=== PATIENT | male | born 1975 | race Caucasian/White ===

== ENCOUNTER 2024-11-19 20:35 | Emergency (ER) | payer BC ==
[2024-11-19 20:45] VITALS: RESP 18
[2024-11-19 22:04] LABS: Appearance,Urine Clear (Clear); Bilirubin,Urine Negative (Negative); Blood,Urine Negative (Negative); Color,Urine Colorless; Glucose,Urine (UA) Negative (Negative); Ketones,Urine Negative (Negative); Leukocyte Esterase,Urine Negative (Negative); Nitrite,Urine Negative (Negative); PH, Urine 5.5 (5.0-8.0); Protein,Urine Negative (Negative); Specific Gravity,Urine 1.003 (1.001-1.035); Urobilinogen,Urine <2.0 mg/dL (<2.0)
--- NOTE | 2024-11-19 22:25 | ED ---
Abdominal Pain HPI <Deshaun Anglin - Last Filed: 11/20/24 19:48> - General Source: patient, RN notes reviewed Mode of arrival: ambulatory Limitations: no limitations - History of Present Illness MD Complaint: abdominal pain Onset/Timin -: days(s) Location: diffuse Migration to: periumbilical, suprapubic Severity scale (1-10): 10 Quality: cramping, stabbing Consistency: constant, intermittent Associated Symptoms: denies other symptoms <Gamaliel Kumar - Last Filed: 11/21/24 09:55> - General Chief Complaint: Abdominal Pain Stated Complaint: testicle pain, right side abdominal pain Time Seen by Provider: 11/19/24 20:53 - History of Present Illness Initial Comments: This is a 48-year-old male with history of CVA hypertension presenting for abdominal and scrotal pain x 7 days. Patient states pain started in his right teste describes pain as intermittent and sharp (10/10). States he went to his PCP where he was evaluated for possible inguinal hernia with no discovery made. States over the past several days he has been having migrating pain traveling to his lower and mid abdomen described as throbbing (7/10) that worsens when bendi ng forward. Endorses regular work with concrete. Endorses history of prostate issues with urination hesitancy. Denies fever, chills, chest pain, dyspnea, N/V/D, constipation, hematuria, other urinary symptoms. (Gamaliel Kumar) - Related Data Previous Rx's Medication Instructions Recorded Amoxic-Pot Clav 875-125Mg 1 tab PO Q12HR 7 Days #14 tab 11/20/24 [Augmentin 875-125] Allergies Allergy/AdvReac Type Severity Reaction Status Date / Time No Known Allergies Allergy Verified 11/19/24 20:45 Review of Systems ROS Other: All systems not noted in ROS Statement are negative. <Deshaun Anglin - Last Filed: 11/20/24 19:48> ROS Other: All systems not noted in ROS Statement are negative. <Gamaliel Kumar - Last Filed: 11/21/24 09:55> ROS Statement: Those systems with pertinent positive or pertinent negative responses have been documented in the HPI. Past Medical History Past Medical History: CVA/TIA, Hypertension History of Any Multi-Drug Resistant Organisms: None Reported Past Surgical History: No Surgical Hx Reported Past Psychological History: No Psychological Hx Reported Smoking Status: Current every day smoker Past Alcohol Use History: Daily Past Drug Use History: None Reported <Gamaliel Kumar - Last Filed: 11/21/24 09:55> General Exam Limitations: no limitations General appearance: alert, in no apparent distress Head exam: Present: atraumatic, normocephalic, normal inspection Eye exam: Present: normal appearance, PERRL, EOMI. Absent: scleral icterus, conjunctival injection, periorbital swelling ENT exam: Present: normal exam, mucous membranes moist Neck exam: Present: normal inspection. Absent: tenderness, meningismus, lymphadenopathy Respiratory exam: Present: normal lung sounds bilaterally. Absent: respiratory distress, wheezes, rales, rhonchi, stridor Cardiovascular Exam: Present: regular rate, normal rhythm, normal heart sounds. Absent: systolic murmur, diastolic murmur, rubs, gallop, clicks GI/Abdominal exam: Present: soft, tenderness (Positive diffuse tenderness and tympanic tenderness across abdomen specially periumbilical region), guarding (Voluntary guarding throughout), normal bowel sounds. Absent: distended, rebound, rigid exam: Present: testicular tenderness (Right testicular tenderness), circumcision, other (Bilateral cremasteric reflex intact. Negative overlying erythema or palpable inguinal hernia). Absent: urethral discharge, scrotal swelling, vertical testicular lie Extremities exam: Present: normal inspection, full ROM, normal capillary refill. Absent: tenderness, pedal edema, joint swelling, calf tenderness Back exam: Present: normal inspection Neurological exam: Present: alert, oriented X3, CN II-XII intact Psychiatric exam: Present: normal affect, normal mood Skin exam: Present: warm, dry, intact, normal color. Absent: rash <Gamaliel Kumar - Last Filed: 11/21/24 09:55> Course Vital Signs 11/19/24 11/20/24 20:41 03:14 Temperature 98.3 F 98.2 F Pulse Rate 68 75 Respiratory 18 18 Rate Blood Pressure 121/77 146/90 O2 Sat by Pulse 99 98 Oximetry Medical Decision Making - Lab Data Result diagrams: 11/19/24 22:32 11/19/24 22:32 <Deshaun Anglin - Last Filed: 11/20/24 19:48> - Lab Data Result diagrams: 11/19/24 22:32 11/19/24 22:32 <Gamaliel Kumar - Last Filed: 11/21/24 09:55> - Medical Decision Making Patient signed out to me pending CT and ultrasound report. CT shows circumfer ential mild wall thickening of the ascending and right side transverse colon concerning for mild acute colitis. Small hiatal hernia. Moderate diffuse hepatic steatosis. Ultrasound shows 0.9 cm left epididymal cyst. Likely left varicocele. Otherwise unremarkable scrotal ultrasound patient is educated on today's findings. Started on Augmentin for colitis. Discharge. Follow-up with PCP. Report back to ER with any new or worsening symptoms. Discussed return parameters and answered all questions. Patient conveyed verbal understanding and agreed to the plan. I discussed this case in detail with my attending Dr. Pham Diagnosis/symptom? @Colitis Acute, or Chronic, or Acute on Chronic? @Acute Uncomplicated (without systemic symptoms) or Complicated (systemic symptoms)? @Uncomplicated Side effects of treatment? @None Exacerbation, Progression, or Severe Exacerbation] @No Poses a threat to life or bodily function? @Unlikely (Deshaun Anglin) Was pt. sent in by a medical professional or institution (, PA, NET DEVELOPER WITH [employer], urgent care, hospital, or long-term...) When possible be specific @ -No Did you speak to anyone other than the patient for history (EMS, parent, family, police, friend...)? What history was obtained from this source @ -No Did you review nursing and triage notes (agree or disagree)? Why? @ -I reviewed and agree with nursing and triage notes Were old charts reviewed (outside hosp., previous admission, EMS record, old EKG, old radiological studies, urgent care reports/EKG's, long-term records)? Report findings @ -No old charts were reviewed Differential Diagnosis (chest pain, altered mental status, abdominal pain women, abdominal pain men, vaginal bleeding, weakness, fever, dyspnea, syncope, headache, dizziness, GI bleed, back pain, seizure, CVA, palpatations, mental health, musculoskeletal)? @ -Differential Abdominal Pain Men: Appendicitis, cholecystitis, diverticulosis, ischemic bowel, pancreatitis, hepatitis, UTI, gastroenteritis, AAA, incarcerated hernia, bowel obstruction, constipation, inflammatory bowel, hepatitis, peptic ulcer disease, splenic infarction, perforated viscus, testicular torsion, this is not meant to be an all-inclusive list EKG interpreted by me (3pts min.). @ -Not done X-rays interpreted by me (1pt min.). @ -None done CT interpreted by me (1pt min.). @ -AP CT shows circumferential mild wall thickening of the ascending and right transverse colon indicating mild acute colitis. Small hiatal hernia and moderate diffuse hepatic steatosis also noted. U/S interpreted by me (1pt. min.). @ -Scrotal ultrasound shows 0.9 cm left epididymal cyst and a left varicocele - otherwise unremarkable, no indication of torsion. What testing was considered but not performed or refused? (CT, X-rays, U/S, labs)? Why? @ -None What meds were considered but not given or refused? Why? @ -None Did you discuss the management of the patient with other professionals (professionals i.e. , PA, NET DEVELOPER WITH [employer], lab, RT, psych nurse, social media assistant, commissioned defence force officer, teacher, hospital chief executive officer, field nurse case manager)? Give summary @ -No Was smoking cessation discussed for >3mins.? @ -No Was critical care preformed (if so, how long)? @ -No Were there social determinants of health that impacted care today? How? (Homelessness, low income, unemployed, alcoholism, drug addiction, transportation, low edu. Level, literacy, decrease access to med. care, detention, rehab)? @ -No Was there de-escalation of care discussed even if they declined (Discuss DNR or withdrawal of care, Hospice)? DNR status @ -No What co-morbidities impacted this encounter? (DM, HTN, Smoking, COPD, CAD, Cancer, CVA, ARF, Chemo, Hep., AIDS, mental health diagnosis, sleep apnea, morbid obesity)? @ -None Was patient admitted / discharged? Hospital course, mention meds given and route, prescriptions, significant lab abnormalities, going to OR and other pertinent info. @ -Patient initially provided IV normal saline. Lab work notable for anion gap 15 with unremarkable WBC kidney function, LFT, lipase and UA. Patient HPI and P/E findings conveyed to Ling Anglin PA-C who assumed patient care. AP CT shows circumferential mild wall thickening of the ascending and right transverse colon indicating mild acute colitis. Small hiatal hernia and moderate diffuse hepatic steatosis also noted. Scrotal ultrasound shows 0.9 cm left epididymal cyst and a left varicocele - otherwise unremarkable, no indication of torsion. Patient provided p.o. Augmentin with remaining Augmentin regimen sent to patient's pharmacy. Discussed patient with Dr. Pham. Undiagnosed new problem with uncertain prognosis? @ -No Drug Therapy requiring intensive monitoring for toxicity (Heparin, Nitro, Insulin, Cardizem)? @ -No Were any procedures done? @ -No Diagnosis/symptom? @ -Colitis, epididymal cyst, varicocele Acute, or Chronic, or Acute on Chronic? @ -Acute Uncomplicated (without systemic symptoms) or Complicated (systemic symptoms)? @ -Complicated Side effects of treatment? @ -No Exacerbation, Progression, or Severe Exacerbation? @ -No Poses a threat to life or bodily function? How? (Chest pain, [place], [place], pneumonia, PE, COPD, DKA, ARF, appy, cholecystitis, CVA, Diverticulitis, Homicidal, Suicidal, threat to staff... and all critical care pts) @ -No (Gamaliel Kumar) - Lab Data Lab Results 11/19/24 11/19/24 11/19/24 Range/Units 21:00 22:32 22:32 WBC 6.02 (4.50-10.00) 10*3/uL RBC 4.39 L (4.40-5.60) 10*6/uL Hgb 14.8 (13.0-17.0) g/dL Hct 41.6 (39.6-50.0) % MCV 94.8 (80.0-97.0) fL MCH 33.7 H (27.0-32.0) pg MCHC 35.6 (32.0-37.0) g/dL Plt Count 258 (140-440) 10*3/uL MPV 9.0 L (9.5-12.2) fL Immature Gran % (Auto) 0.3 % Neutrophils % 49.2 % Lymphocytes % 34.1 % Monocytes % 10.3 % Eosinophils % 5.1 % Basophils % 1.0 % Immature Gran # 0.02 (0.00-0.04) 10*3/uL Neutrophils # 2.96 (1.80-7.70) 10*3/uL Lymphocytes # 2.05 (0.90-5.00) 10*3/uL Monocytes # 0.62 (0.20-1.00) 10*3/uL Eosinophils # 0.31 (0.04-0.35) 10*3/uL Basophils # 0.06 (0.00-0.10) 10*3/uL Sodium 137 (137-145) mmol/L Potassium 3.6 (3.5-5.1) mmol/L Chloride 104 (98-107) mmol/L Carbon Dioxide 18 L (22-30) mmol/L Anion Gap 15 mmol/L BUN 14 (9-20) mg/dL Creatinine 0.76 (0.66-1.25) mg/dL Est GFR (CKD-EPI)AfAm >90 (>60 ml/min/1.73 sqM) Est GFR (CKD-EPI)NonAf >90 (>60 ml/min/1.73 sqM) Glucose 98 (74-99) mg/dL Calcium 9.6 (8.4-10.2) mg/dL Total Bilirubin 0.6 (0.2-1.3) mg/dL AST 31 (17-59) U/L ALT 25 (4-49) U/L Alkaline Phosphatase 65 (38-126) U/L Total Protein 7.8 (6.3-8.2) g/dL Albumin 4.7 (3.5-5.0) g/dL Lipase 69 (23-300) U/L Urine Color Colorless Urine Appearance Clear (Clear) Urine pH 5.5 (5.0-8.0) Ur Specific [place] 1.003 (1.001-1.035) Urine Protein Negative (Negative) Urine Glucose (UA) Negative (Negative) Urine Ketones Negative (Negative) Urine Blood Negative (Negative) Urine Nitrite Negative (Negative) Urine Bilirubin Negative (Negative) Urine Urobilinogen <2.0 (<2.0) mg/dL Ur Leukocyte Esterase Negative (Negative) Disposition Is patient prescribed a controlled substance at d/c from ED?: No Time of Disposition: 03:07 <Deshaun Anglin - Last Filed: 11/20/24 19:48> Is patient prescribed a controlled substance at d/c from ED?: No <Gamaliel Kumar - Last Filed: 11/21/24 09:55> Clinical Impression: Colitis Disposition: HOME SELF-CARE Condition: Good Instructions (If sedation given, give patient instructions): Colitis (ED) Additional Instructions: Follow-up with your PCP. Report back to ER with any new or worsening symptoms. Prescriptions: Amoxic-Pot Clav 875-125Mg [Augmentin 875-125] 1 tab PO Q12HR 7 Days #14 tab Referrals: None,Stated [Primary Care Provider] - 1-2 days
[2024-11-19 22:41] LABS: Basophils # (A) 0.06 10*3/uL (0.00-0.10); Eosinophils # (A) 0.31 10*3/uL (0.04-0.35); Eosinophils % (A) 5.1 %; HCT 41.6 % (39.6-50.0); HGB 14.8 g/dL (13.0-17.0); Lymphocytes # (A) 2.05 10*3/uL (0.90-5.00); Lymphocytes % (A) 34.1 %; MCH 33.7 pg (27.0-32.0); MCHC 35.6 g/dL (32.0-37.0); MCV 94.8 fL (80.0-97.0); Monocytes # (A) 0.62 10*3/uL (0.20-1.00); Monocytes % (A) 10.3 %; Neutrophils # (A) 2.96 10*3/uL (1.80-7.70); Neutrophils % (A) 49.2 %; Platelet Count 258 10*3/uL (140-440); RBC 4.39 10*6/uL (4.40-5.60); RDW 12.2 % (11.5-14.5); WBC 6.02 10*3/uL (4.50-10.00)
[2024-11-19 22:58] LABS: ALT 25 U/L (4-49); AST 31 U/L (17-59); African American GFR (CKD) >90 (>60 ml/min/1.73 sqM); Albumin 4.7 g/dL (3.5-5.0); Alkaline Phosphatase 65 U/L (38-126); Anion Gap 15 mmol/L; Blood Urea Nitrogen 14 mg/dL (9-20); Calcium 9.6 mg/dL (8.4-10.2); Carbon Dioxide 18 mmol/L (22-30); Chloride 104 mmol/L (98-107); Glucose 98 mg/dL (74-99); Lipase 69 U/L (23-300); Non-African American GFR(CKD) >90 (>60 ml/min/1.73 sqM); Potassium 3.6 mmol/L (3.5-5.1); Sodium 137 mmol/L (137-145); Total Bilirubin 0.6 mg/dL (0.2-1.3); Total Protein 7.8 g/dL (6.3-8.2)
[2024-11-19] MEDS: SODIUM CHLORIDE 0.9% 1,000 ML IV STA (23:28)
[2024-11-19] MEDS: HYDROmorphone 1 MG/ML 1 ML SYRINGE IVP STA (23:29)
--- NOTE | 2024-11-20 02:11 | CT ---
EXAM: CT Abdomen and Pelvis With Intravenous Contrast CLINICAL HISTORY: ITS.REASON CT Reason: Diffuse abdominal tenderness, right testicular pn TECHNIQUE: Axial computed tomography images of the abdomen and pelvis with intravenous contrast. CTDI is 19 mGy and DLP is 892 mGy-cm. This CT exam was performed using one or more of the following dose reduction techniques: automated exposure control, adjustment of the mA and/or kV according to patient size, and/or use of iterative reconstruction technique. COMPARISON: None. FINDINGS: Motion-induced image degradation limits anatomical details. Lung bases: Unremarkable. No mass. No consolidation. ABDOMEN: Liver: Moderate steatosis.. No mass. Gallbladder and bile ducts: Unremarkable. No calcified stones. No ductal dilation. Pancreas: No contour deforming mass. No ductal dilation. Spleen: Unremarkable. No splenomegaly. Adrenals: Unremarkable. No mass. Kidneys and ureters: Unremarkable. No solid mass. No hydronephrosis. Stomach and bowel: A small hiatal hernia. Moderately distended stomach filled with fluid/ingested food debris. Fluid/gas filled normal caliber small bowel loops. Circumferential mild wall thickening of the ascending and right transverse colon, concerning for mild acute colitis (series 202 image 47). Moderate colonic stool volume. No obstruction. PELVIS: Appendix: No findings to suggest acute appendicitis. Bladder: Somewhat distended bladder. No mass. Reproductive: Unremarkable as visualized. ABDOMEN and PELVIS: Intraperitoneal space: Unremarkable. No free air. No significant fluid collection. Bones/joints: No acute fracture. No dislocation. Degenerative spondylosis predominantly at L5-S1 level. Soft tissues: Unremarkable. Vasculature: Atheromatous calcification of the aortoiliac vasculature.. No abdominal aortic aneurysm. Lymph nodes: . No enlarged lymph nodes.. IMPRESSION: Circumferential mild wall thickening of the ascending and right side transverse colon concerning for mild acute colitis. Clinical correlation recommended. A small hiatal hernia. Moderate diffuse hepatic steatosis. .
[2024-11-20] MEDS ORDERED: AMOXIC-POT CLAV 875-125MG 1 EACH TAB PO STA (03:08)
--- NOTE | 2024-11-20 03:13 | US ---
EXAM: US Scrotum CLINICAL HISTORY: ITS.REASON US Reason: Diffuse abdominal tenderness, right testicular pn TECHNIQUE: Real-time ultrasound of the scrotum with color Doppler and image documentation. COMPARISON: None. FINDINGS: Right testicle: Measures 4.8 x 1.8 x 2.8 cm. No mass. No torsion. Left testicle: 4.1 x 1.8 x 2.8 cm. No mass. No torsion. Epididymides: Right epididymis unremarkable. Left epididymis: A 0.9 x 0.7 x 0.8 cm cyst. Scrotum: Unremarkable. Other findings: Possibly left varicocele. . IMPRESSION: A 0.9 cm left epididymal cyst. Likely left varicocele. Otherwise unremarkable scrotal ultrasound. .
[2024-11-20 03:15] VITALS: BP 146/90; PULSE 75; TEMP 98.2
== END 2024-11-20 03:15 | disposition home or self-care (01) ==
LOC: EC 20:35
DX: K52.9 Noninfective gastroenteritis and colitis, unspecified (principal); N50.3 Cyst of epididymis; I86.1 Scrotal varices; K44.9 Diaphragmatic hernia without obstruction or gangrene; F17.200 Nicotine dependence, unspecified, uncomplicated
CPT/HCPCS: 36415; 80053; 83690; 85025; 81003; 93975; 76870; 74177; 99284; 96374; 96361; J1171; Q9967